=== PATIENT | female | born 1945 | race Caucasian/White ===

== ENCOUNTER 2024-05-18 20:37 | Emergency (ER) | payer MEDICARE, SELFPAY ==
[2024-05-18 21:03] VITALS: BMI 25.5
--- NOTE | 2024-05-18 21:38 | ED.SKININJ ---
HPI-Injury
General
Chief Complaint: Skin Surface Trauma
Source: patient
Exam Limitations: none
Time Seen by Provider: 05/18/24 20:59
Nursing documentation reviewed up to this point in time: agreed with
History of Present Illness-Injury
Is this injury a work related problem?: No
Is pt an associate of [facility]?: No
Initial Injury comments:
Slid off step stool and cut leg. SUstained lac to right lower leg. Injury occurred just [employer]. Brought to eD by spouse for eval.
Past History
Past History
ED Past Medical History: CAD
Review of Systems
Review of Systems
Allergies reviewed?: Yes
All Other Systems: ROS reviewed and negative except as documented in HPI and ROS
Constitutional: Reports no symptoms
Musculoskeletal: Reports no symptoms
Skin: Reports other (Large laceration right lower leg)
Neurological: Reports no symptoms
Psychiatric: Reports no symptoms
Skin Exam
Laceration
Right Lower Anterior Leg:
Length in cm: 8
Orientation: diagonal
Type of Laceration: simple
Any active bleeding?: no active bleeding
Distal skin color and temperature: normal-warm & good color
Normal distal neurovascular exam: Yes
Range of motion: full
Phy Exam
General Physical Exam
General Presentation: well appearing and no apparent distress
General age: appears stated age
General Skin: warm and dry
General Habitus: normal
Musculoskeletal Exam
Musculoskeletal Exam: full ROM and neuro vasc intact
Skin Exam
Skin Exam: normal color, warm/dry and no rash
Psychiatric Exam
Psychiatric Exam: normal mood/affect
Course
Orders/Labs/Results
Orders:
Orders
05/18/24 21:28
Cephalexin Monohydrate [Keflex] 500 mg PO NOW STA
Vital Signs
Initial and Last Documented VS:
Initial Vital Signs
Temp Pulse Resp Pulse Ox
98.4 F 82 16 98
05/18/24 20:40 05/18/24 20:40 05/18/24 20:40 05/18/24 20:40
Last Documented Vital Signs
Temp Pulse Resp Pulse Ox
98.4 F 82 16 98
05/18/24 20:40 05/18/24 20:40 05/18/24 20:40 05/18/24 20:40
Procedures
Laceration Closure
Right Lower Leg:
Status of Wound: clean
Description of Wound Edges: sharp
Preparation: cleaned with saline and cleaned with Betadine
Anesthesia: 1% Lidocaine
Revision/Debridement: routine- no revision and irrigate-direct pressure
Wound exploration: explored to base- no FB and no tendon involvement
Type of Closure: single layer closure
Skin Closure Material: 4-0 prolene
*Critical Care Note
Total Time (30-74mins, 75-104mins- exclusive of procedures): Not Applicable
ED Attending Note
-
Portions of this chart may have been created with voice recognition software.� Occasional wrong word or��sound alike� substitutions may have occurred due to the inherent limitations of voice recognition software.
Discharge Plan
Departure
Patient Disposition: Home (Routine Discharge)
Date of Disposition: 05/18/24
Time of Disposition: 21:28
Patient with high blood pressure during this ER visit?: No
Condition: Good
Covid-19: Not Applicable
Discharge Problem:
Laceration of leg
Instructions: Laceration Repair With Stitches (DC)
Prescriptions:
New
cephalexin 500 mg capsule
500 mg PO BID 7 Days Qty: 14 0RF
Activity Restrictions/Additional Instructions:
Sutures can be removed in 7-10 days by your family doctor. Return to the emergency department immediately for fever/chills, increasing pain/redness/swelling to your leg, or for any further concerns. Your prescription was sent to [facility] [address]
[place]
Interventions
Interventions:
*Risk Screen - Suicide Last Done: 05/18/24 20:40
*General Assessment Last Done: 05/18/24 20:40
ED- Fall Risk Assessment Last Done: 05/18/24 21:05
*ED COVID-19 Vaccine History Last Done: 05/18/24 20:40
ED-Skin Assessment Last Done: 05/18/24 21:04
Discharge Date and Time
Print Language: [place]
[2024-05-18] MEDS: KEFLEX 500 MG PO (21:41)
[2024-05-18 22:04] VITALS: BP 180/96
== END 2024-05-18 22:05 | disposition home or self-care (01) ==
LOC: EMR 20:37
PROVIDERS: EMERGENCY PHYSICIAN Student in an Organized Health Care Education/Training Program
DX: S81.811A Laceration without foreign body, right lower leg, initial encounter (principal); W01.0XXA Fall on same level from slipping, tripping and stumbling without subsequent striking against object, initial encounter
CPT/HCPCS: 99283; 12004